=== PATIENT | female | born 1970 | race Caucasian/White ===

== ENCOUNTER 2016-12-08 03:36 | Emergency (ER) | payer SELFPAY ==
[2016-12-08 04:03] LABS: URINE APPEARANCE CLEAR; URINE BILIRUBIN NEGATIVE (NEGATIVE); URINE BLOOD NEGATIVE (NEGATIVE); URINE COLOR COLORLESS; URINE GLUCOSE (UA) NEGATIVE (NEGATIVE); URINE KETONE NEGATIVE (NEGATIVE); URINE LEUK ESTERASE NEGATIVE (NEGATIVE); URINE NITRITE NEGATIVE (NEGATIVE); URINE PROTEIN NEGATIVE (NEGATIVE); URINE UROBILINOGEN NEGATIVE E.U./dl (0.2-1.0)
[2016-12-08] MEDS ORDERED: SODIUM CHLORIDE 0.9% 500 ML INFUS.BAG IV ONE (04:29)
--- NOTE | 2016-12-08 04:32 | PDOC ---
History of Present Illness - General History Source: Patient Exam Limitations: No Limitations - History of Present Illness Initial Comments: 12/08/16 05:37 The patient is a 46 year old female with history of x 2 who presents to the ED complaining of 3 days of diffuse abdominal pain, worse in the suprapubic region, pressure like in nature. Her last bowel movement was approximately 1 week ago. No fever or chills. No nausea, vomiting, or diarrhea. She does admit to consuming alcohol prior to her ED visit. <Janelle Chávez - Last Filed: 12/08/16 05:37> <Yissel Felder - Last Filed: 12/08/16 06:31> <Rosa Whitmore - Last Filed: 12/08/16 11:24> - General Chief Complaint: Pain Stated Complaint: PAIN Time Seen by Provider: 12/08/16 03:53 Past History <Janelle Chávez - Last Filed: 12/08/16 05:37> - Psycho/Social/Smoking Cessation Hx Suicidal Ideation: No Smoking History: Never smoked Have you smoked in the past 12 months: No Information on smoking cessation initiated: No Hx Alcohol Use: No Drug/Substance Use Hx: No <Yissel Felder - Last Filed: 12/08/16 06:31> <Rosa Whitmore - Last Filed: 12/08/16 11:24> - Past Medical History Allergies/Adverse Reactions: Allergies Allergy/AdvReac Type Severity Reaction Status Date / Time No Known Allergies Allergy Verified 12/08/16 03:50 Home Medications: Ambulatory Orders NK [No Known Home Medication] 12/08/16 Review of Systems - Review of Systems Able to Perform ROS?: Yes Comments:: 12/08/16 05:40 GENERAL/CONSTITUTIONAL: No fever or chills. No weakness. HEAD, EYES, EARS, NOSE AND THROAT: No change in vision. No ear pain or discharge. No sore throat CARDIOVASCULAR: No chest pain or shortness of breath. RESPIRATORY: No cough, wheezing, or hemoptysis. GASTROINTESTINAL: Diffuse abdominal pain, consipation. No nausea, vomiting, diarrhea. GENITOURINARY: No dysuria, frequency, or change in urination. MUSCULOSKELETAL: No joint or muscle swelling or pain. No neck or back pain. SKIN: No rash NEUROLOGIC: No headache, vertigo, loss of consciousness, or change in strength/ sensation. ENDOCRINE: No increased thirst. No abnormal weight change. HEMATOLOGIC/LYMPHATIC: No anemia, easy bleeding, or history of blood clots. ALLERGIC/IMMUNOLOGIC: No hives or skin allergy. <Janelle Chávez - Last Filed: 12/08/16 05:37> *Physical Exam - Vital Signs Last Vital Signs Temp Pulse Resp BP Pulse Ox 97.7 F 87 14 143/90 100 12/08/16 03:51 12/08/16 03:51 12/08/16 03:51 12/08/16 03:51 12/08/16 03:51 - Physical Exam Comments: 12/08/16 05:41 GENERAL: Awake, alert, and fully oriented, in no acute distress HEAD: No signs of trauma EYES: PERRLA, EOMI, sclera anicteric, conjunctiva clear ENT: Auricles normal inspection, hearing grossly normal, nares patent, oropharynx clear without exudates. Moist mucosa NECK: Normal ROM, supple, no lymphadenopathy, JVD, or masses LUNGS: Breath sounds equal, clear to auscultation bilaterally. No wheezes, and no crackles HEART: Regular rate and rhythm, normal S1 and S2, no murmurs, rubs or gallops ABDOMEN: Soft, diffusely tender, normoactive bowel sounds. No guarding, no rebound. No masses EXTREMITIES: Normal range of motion, no edema. No clubbing or cyanosis. No cords, erythema, or tenderness NEUROLOGICAL: Cranial nerves II through XII grossly intact. Normal speech, normal gait SKIN: Warm, Dry, normal turgor, no rashes or lesions noted. <Janelle Chávez - Last Filed: 12/08/16 05:37> - Vital Signs Last Vital Signs Temp Pulse Resp BP Pulse Ox 97.7 F 87 14 143/90 100 12/08/16 03:51 12/08/16 03:51 12/08/16 03:51 12/08/16 03:51 12/08/16 03:51 <Yissel Felder - Last Filed: 12/08/16 06:31> - Vital Signs Last Vital Signs Temp Pulse Resp BP Pulse Ox 98.1 F 75 19 107/70 97 12/08/16 07:50 12/08/16 07:50 12/08/16 07:50 12/08/16 07:50 12/08/16 07:50 <Rosa Whitmore - Last Filed: 12/08/16 11:24> ED Treatment Course - LABORATORY CBC & Chemistry Diagram: 12/08/16 04:30 12/08/16 04:30 - ADDITIONAL ORDERS Additional order review: Laboratory Results 12/08/16 12/08/16 12/08/16 04:30 04:30 03:54 Sodium Cancelled Potassium Cancelled Chloride Cancelled Carbon Dioxide Cancelled Anion Gap Cancelled BUN Cancelled Creatinine Cancelled Creat Clearance w eGFR Cancelled Random Glucose Cancelled Calcium Cancelled Total Bilirubin Cancelled AST Cancelled ALT Cancelled Alkaline Phosphatase Cancelled Total Protein Cancelled Albumin Cancelled Total Amylase Cancelled Lipase Cancelled Beta HCG, Quant Cancelled Urine Color Colorless Urine Appearance Clear Urine pH 6.0 Urine Protein Negative Urine Glucose (UA) Negative Urine Ketones Negative Urine Blood Negative Urine Nitrite Negative Urine Bilirubin Negative Urine Urobilinogen Negative Ur Leukocyte Esterase Negative Urine HCG, Qual Questionable 12/08/16 04:30 RBC 5.27 H MCV 88.6 MCHC 33.4 RDW 15.3 MPV 8.6 Neutrophils % 50.8 Lymphocytes % 40.2 H Monocytes % 6.1 Eosinophils % 1.7 Basophils % 1.2 - Medications Given in the ED: ED Medications Discontinued Medications Generic Name Dose Route Start Last Admin Trade Name Jacqueline PRN Reason Stop Dose Admin Acetaminophen 1,000 mg 12/08/16 04:51 12/08/16 04:55 Ofirmev Injection - IVPB 12/08/16 04:52 1,000 mg ONCE ONE Administration Sodium Chloride 1,000 ml 12/08/16 04:29 12/08/16 04:41 Normal Saline - IV 12/08/16 04:30 1,000 ml ONCE ONE Administration <Janelle Chávez - Last Filed: 12/08/16 05:37> - LABORATORY CBC & Chemistry Diagram: 12/08/16 04:30 12/08/16 05:00 - ADDITIONAL ORDERS Additional order review: Laboratory Results 12/08/16 03:54 Urine Color Colorless Urine Appearance Clear Urine pH 6.0 Urine Protein Negative Urine Glucose (UA) Negative Urine Ketones Negative Urine Blood Negative Urine Nitrite Negative Urine Bilirubin Negative Urine Urobilinogen Negative Ur Leukocyte Esterase Negative Urine HCG, Qual Questionable <Felder,Yissel - Last Filed: 12/08/16 06:31> - LABORATORY CBC & Chemistry Diagram: 12/08/16 04:30 12/08/16 05:00 - ADDITIONAL ORDERS Additional order review: Laboratory Results 12/08/16 12/08/16 12/08/16 05:00 05:00 05:00 Sodium 142 Potassium 3.7 Chloride 103 Carbon Dioxide 27 Anion Gap 12 BUN 5 L Creatinine 0.6 Creat Clearance w eGFR > 60 Random Glucose 87 Calcium 8.5 Total Bilirubin 0.3 AST 14 L ALT 19 Alkaline Phosphatase 81 Total Protein 7.2 Albumin 3.8 Total Amylase 44 Lipase 111 Beta HCG, Quant < 1.0 Urine Color Urine Appearance Urine pH Urine Protein Urine Glucose (UA) Urine Ketones Urine Blood Urine Nitrite Urine Bilirubin Urine Urobilinogen Ur Leukocyte Esterase Urine HCG, Qual Alcohol, Quantitative 12/08/16 12/08/16 12/08/16 04:30 04:30 04:30 Sodium Cancelled Potassium Cancelled Chloride Cancelled Carbon Dioxide Cancelled Anion Gap Cancelled BUN Cancelled Creatinine Cancelled Creat Clearance w eGFR Cancelled Random Glucose Cancelled Calcium Cancelled Total Bilirubin Cancelled AST Cancelled ALT Cancelled Alkaline Phosphatase Cancelled Total Protein Cancelled Albumin Cancelled Total Amylase Cancelled Lipase Cancelled Beta HCG, Quant Cancelled Urine Color Urine Appearance Urine pH Urine Protein Urine Glucose (UA) Urine Ketones Urine Blood Urine Nitrite Urine Bilirubin Urine Urobilinogen Ur Leukocyte Esterase Urine HCG, Qual Alcohol, Quantitative 303.0 H* 12/08/16 03:54 Sodium Potassium Chloride Carbon Dioxide Anion Gap BUN Creatinine Creat Clearance w eGFR Random Glucose Calcium Total Bilirubin AST ALT Alkaline Phosphatase Total Protein Albumin Total Amylase Lipase Beta HCG, Quant Urine Color Colorless Urine Appearance Clear Urine pH 6.0 Urine Protein Negative Urine Glucose (UA) Negative Urine Ketones Negative Urine Blood Negative Urine Nitrite Negative Urine Bilirubin Negative Urine Urobilinogen Negative Ur Leukocyte Esterase Negative Urine HCG, Qual Questionable Alcohol, Quantitative 12/08/16 04:30 RBC 5.27 H MCV 88.6 MCHC 33.4 RDW 15.3 MPV 8.6 Neutrophils % 50.8 Lymphocytes % 40.2 H Monocytes % 6.1 Eosinophils % 1.7 Basophils % 1.2 - Medications Given in the ED: ED Medications Discontinued Medications Generic Name Dose Route Start Last Admin Trade Name Freq PRN Reason Stop Dose Admin Acetaminophen 1,000 mg 12/08/16 04:51 12/08/16 04:55 Ofirmev Injection - IVPB 12/08/16 04:52 1,000 mg ONCE ONE Administration Sodium Chloride 1,000 ml 12/08/16 04:29 12/08/16 04:41 Normal Saline - IV 12/08/16 04:30 1,000 ml ONCE ONE Administration <Rosa Whitmore - Last Filed: 12/08/16 11:24> Medical Decision Making - Medical Decision Making 12/08/16 06:31 Pt comes with abdominal pain. She was drinking last night with fam and friends. ETOH 303. She is not . SHe has a normal UA. She has diffuse lower abdominal pain and she will be sent for CT scan abd pelvis. She will be signed out to the day ER doc who will follow CT and/pelvis and d/c when she is more sober. Pt had Csections in the past. No other surgeries. <Yissel Felder - Last Filed: 12/08/16 06:31> - Medical Decision Making 12/08/16 10:55 46 yo F presented as intoxicated c/o abd pain. ct was obtained, showed mild right hydroureter, mild left hydroureter. no stone noted. Etoh level was 303 at 4am, pt here with family. now awake. clinically sober, family here to bring her home. has h/o stones, no current pain. recommend followup with urology. [email or web address] <Rosa Whitmore - Last Filed: 12/08/16 11:24> *DC/Admit/Observation/Transfer - Attestations Scribe Attestion: 12/08/16 05:41 Documentation prepared by Janelle Chávez, acting as medical billing service for Yissel Felder MD. <Janelle Chávez - Last Filed: 12/08/16 05:37> <Yissel Felder - Last Filed: 12/08/16 06:31> - Discharge Dispostion Admit: No <Rosa Whitmore - Last Filed: 12/08/16 11:24> Diagnosis at time of Disposition: Renal colic - Discharge Dispostion Disposition: HOME - Referrals Referrals: Tom Rojo MD [Staff Physician] - - Patient Instructions Printed Discharge Instructions: Alcohol Use Disorder, Kidney Stones -- Adult Additional Instructions: you should follow up with your urologist. if you do not have one, you should follow up with urologist. Mo Rojo [phone] or your primary doctor for reevaluation of your kidneys. return for any pain , fever or any concerns. you should obstain from heavy alcohol intake. - Post Discharge Activity Work/School Note: Back to Work
[2016-12-08] MEDS ORDERED: ACETAMINOPHEN INJECTION 100 ML IVPB ONE (04:37)
[2016-12-08 04:51] LABS: BASOPHIL 1.2 % (0-2.0); EOSINOPHIL 1.7 % (0-4.5); MCH 29.6 pg (25.7-33.7); MCHC 33.4 g/dl (32.0-36.0); MEAN CELL VOLUME 88.6 fl (80-96); MEAN PLT VOLUME 8.6 fl (7.5-11.1); NEUTROPHILS 50.8 % (42.8-82.8); PLATELET COUNT 218 K/MM3 (134-434); RDW 15.3 % (11.6-15.6); WHITE BLOOD COUNT 7.3 K/mm3 (4.0-10.0)
[2016-12-08] MEDS ORDERED: ACETAMINOPHEN 1000 MG/100 ML VIAL (NON FORMULARY) IVPB ONE (04:51)
[2016-12-08 05:42] LABS: ALBUMIN 3.8 g/dl (3.4-5.0); ANION GAP 12 (8-16); BILIRUBIN,TOTAL 0.3 mg/dL (0.2-1.0); CALCIUM 8.5 mg/dL (8.5-10.1); CO2 27 mmol/L (21-32); COCKROFT - GAULT 0; CREATININE 0.6 mg/dL (0.55-1.02); GLUCOSE,RANDOM 87 mg/dL (74-106); SGOT/AST 14 U/L (15-37); SGPT/ALT 19 U/L (12-78); TOT PROT 7.2 g/dl (6.4-8.2)
[2016-12-08 05:43] LABS: ALK PHOS 81 U/L (45-117)
[2016-12-08 06:00] LABS: AMYLASE 44 U/L (25-115)
[2016-12-08 07:47] VITALS: BMI 23.7
[2016-12-08 08:26] VITALS: TEMP 98.1
[2016-12-08 11:32] VITALS: BP 108/78; PULSE 78
== END 2016-12-08 11:32 | disposition home or self-care (01) ==
LOC: JER 03:36
PROC: 3E033NZ Introduction of Analgesics, Hypnotics, Sedatives into Peripheral Vein, Percutaneous Approach (ICD-10-PCS; principal; 2016-12-08)
DX: N23 Unspecified renal colic (principal); F10.10 Alcohol abuse, uncomplicated; Y90.8 Blood alcohol level of 240 mg/100 ml or more
CPT/HCPCS: 36415; 74176-TC; 80053; 80307; 81003; 82150; 83690; 84702; 84703; 85025; 87086; 99284-25